=== PATIENT | female | born 1960 | race American Indian/Alaskan Native ===

== ENCOUNTER 2018-09-26 06:22 | Day surgery (SDC) | payer OTHER ==
[~2018-09-26 06:22] MED LIST: Midazolam 1 MG/ML 2 ML SDV ONE; fentaNYL 100 MCG/2 ML SDV ONE
[2018-09-26] MEDS ORDERED: fentaNYL 100 MCG/2 ML SDV IV ONE ×3 (06:23→07:47)
[2018-09-26] MEDS ORDERED: Midazolam 1 MG/ML 2 ML SDV IV ONE ×3 (06:23→07:48)
[2018-09-26] MEDS ORDERED: Dextrose 5%-0.45% NaCl 1,000 ML IV SCH (06:45)
--- NOTE | 2018-09-26 08:38 | OR ---
DATE: 09/26/2018 PROCEDURE PERFORMED: Esophagogastroduodenoscopy, NBI, and multiple pinch biopsies. INSTRUMENT USED: [id number]-HQ190 Olympus video panendoscope. PREMEDICATIONS: No oral or topical anesthesia used. Fentanyl 100 mcg intravenous, Versed 2 mg intravenous. Nasal O2 cannula. The procedure was done under pulse oximetry, BP recording, and monitoring and evaluation advisor. INDICATION: The patient with persistent heartburn, upper abdominal pain, dyspepsia, and abdominal bloating, unexplained and not responsive to medical measures, on multiple acid suppressants. Esophagogastroduodenoscopy is performed for detection of any active erosive lesions, malignancy also under consideration. H. pylori status to be determined, small bowel biopsies to be obtained for celiac disease if indicated, endoscopic hemostasis therapy if needed. DESCRIPTION OF PROCEDURE: The scope was passed with ease. Adequate visualization of the esophagus was made from proximal to distal areas. No upper esophageal lesions identified. No distal esophageal stricture. No uphill or downhill esophageal varices. No [place] tear. No evidence of erosive esophagitis by Knox criteria. No esophageal polyp or tumor mass identified. Z-line was seen at around 39 cm distal to the oral verge, configuration consistent with grade 1 by ZAP classification. No proximal gastric varices noted. Gastric fundus examination by retroflexion showed no polypoid lesions. No gastric ulcer, malignant mass, or vascular ectasia identified. Gastric antral diverticulum was noted. Duodenal bulb showed no ulcer. Visualized second part of the duodenum was unremarkable. Multiple pinch biopsies, 4 in number, were taken from different areas of the second part of the duodenum and also tissues were obtained from the duodenal bulb at 9 and 12 o'clock positions and sent for any histopathologic evidence of celiac disease. NBI views were obtained at the second part of the duodenum. Multiple pinch biopsies were taken from the gastric antrum and proximal body and sent for PyloriTek test for H. pylori and histopathology. No bleeding was noted from any of the visualized areas at the completion of examination. Photographs were taken of the duodenal bulb, gastric antrum, fundus, and distal esophagus. IMPRESSION: Gastric antral diverticulum. The patient tolerated the procedure well. [facility] /[id number]
--- NOTE | 2018-09-26 09:08 | LETTER ---
09/26/[address] [facility] [address] [place] [address] RE: ADRIENNE NEVAREZ : 1960 Dear Ms. Lal: Adrienne Heaven Izabel had esophagogastroduodenoscopy done this morning and she tolerated the procedure well. I herewith send a copy of the endoscopy note and photographs for your review. Thank you. Sincerely, [facility] /[id number]
[2018-09-26 10:58] VITALS: BP 101/59
== END 2018-09-26 10:02 | disposition home or self-care (01) ==
LOC: DL.ENDO 06:22
PROVIDERS: ATTEND Internal Medicine Gastroenterology
DX: K29.50 Unspecified chronic gastritis without bleeding (principal); K31.4 Gastric diverticulum; K31.89 Other diseases of stomach and duodenum; K21.9 Gastro-esophageal reflux disease without esophagitis; D72.820 Lymphocytosis (symptomatic); I10 Essential (primary) hypertension; E78.00 Pure hypercholesterolemia, unspecified; F41.1 Generalized anxiety disorder; E66.09 Other obesity due to excess calories; Z90.49 Acquired absence of other specified parts of digestive tract; Z68.38 Body mass index [BMI] 38.0-38.9, adult
CPT/HCPCS: 43239; 87077; J2250; J3010; J7042

== ENCOUNTER 2019-11-30 14:26 | Emergency (ER) | payer BC, OTHER ==
--- NOTE | 2019-11-30 13:16 | EDM.PDOC ---
ED HPI GENERAL MEDICAL PROBLEM - General Stated Complaint: [facility] Time Seen by Provider: 11/30/19 13:20 Source of Information: Reports: Patient, Provider History Limitations: Reports: No Limitations - History of Present Illness INITIAL COMMENTS - FREE TEXT/NARRATIVE: This 58 yo female patient was brought to the ED by [facility] from the [facility] due to left sided chest pain. The patient reports her chest pain started about 1 hour prior to arrival in the [facility]. The patient was given a dose of Aspirin while in the Clinic and a dose of Nitro while with EMS. During transport, the patient reports her pain was gone. The patient reports her current pain seems to be just below her left nipple. The patient reports no redness or drainage. The patient has a history of gallstones and heartburn, but no personal history of cardiac issues. The patient's family does have a history of cardiovascular problems (her brother has had a heart attack). Onset: Today Onset Date: 11/30/19 Onset Time: 11:00 Duration: Intermittent Location: Reports: Chest (left side of chest and left breast) Quality: Reports: Ache, Sharp Severity: Moderate Improves with: Reports: None Worsens with: Reports: None Context: Reports: Other Associated Symptoms: Reports: Chest Pain Treatments EVP GENERAL COUNSEL: Reports: Aspirin (By [facility]), Nitroglycerin (by EMS) Left Chest Pain Score (Numeric/FACES): 2 - Related Data Allergies Allergy/AdvReac Type Severity Reaction Status Date / Time Dairy Products Allergy Nausea and Verified 11/30/19 13:18 Vomiting Home Meds: Home Meds Lidocaine 5% [Lidoderm 5%] 1 patch TOP DAILY 11/30/19 [History] Past Medical History - Past Health History Medical/Surgical History: Denies Medical/Surgical History Cardiovascular History: Reports: High Cholesterol, Hypertension, Other (See Below) Other Cardiovascular History: PATIENT DENIES HX OF HBP & HIGH CHOLESTEROL Respiratory History: Reports: None Gastrointestinal History: Reports: Diverticulosis, GERD, Helicobacter Pylori Genitourinary History: Reports: None [employer] History: Reports: Ectopic , Musculoskeletal History: Reports: None, Fracture Other Musculoskeletal History: HX OF FRACTURE OF LEFT FOREARM Neurological History: Reports: None Psychiatric History: Reports: Anxiety, Other (See Below) Other Psychiatric History: DENIES HX OF ANXIETY Endocrine/Metabolic History: Reports: Obesity/BMI 30+ Hematologic History: Reports: B12 Deficiency, Blood Transfusion(s) Immunologic History: Reports: None Oncologic (Cancer) History: Reports: None Dermatologic History: Reports: None - Infectious Disease History Infectious Disease History: Reports: Helicobacter Pylori Other Infectious Disease History: UNKNOWN - Past Surgical History Head Surgeries/Procedures: Reports: None HEENT Surgical History: Reports: None Cardiovascular Surgical History: Reports: None Respiratory Surgical History: Reports: None GI Surgical History: Reports: Cholecystectomy, Colonoscopy, EGD Female Surgical History: Reports: D&C, Tubal Ligation Endocrine Surgical History: Reports: None Neurological Surgical History: Reports: None Musculoskeletal Surgical History: Reports: Other (See Below) Other Musculoskeletal Surgeries/Procedures:: BUNIONECTOMY Oncologic Surgical History: Reports: None Dermatological Surgical History: Reports: None Social & Family History - Caffeine Use Caffeine Use: Reports: Coffee Other Caffeine Use: 1 CUP COFFEE DAILY ED ROS GENERAL - Review of Systems Review Of Systems: Comprehensive ROS is negative, except as noted in HPI. ED EXAM, GENERAL - Physical Exam Exam: See Below Exam Limited By: No Limitations General Appearance: Alert, WD/WN, Anxious, Mild Distress Eye Exam: Bilateral Eye: EOMI, Normal Inspection, PERRL Ears: Normal External Exam, Normal Canal, Hearing Grossly Normal, Normal TMs Nose: Normal Inspection, Normal Mucosa, No Blood Throat/Mouth: Normal Inspection, Normal Lips, Normal Teeth, Normal Gums, Normal Oropharynx, Normal Voice, No Airway Compromise Head: Atraumatic, Normocephalic Neck: Normal Inspection, Supple, Non-Tender, Full Range of Motion Respiratory/Chest: No Respiratory Distress, Lungs Clear, Normal Breath Sounds, No Accessory Muscle Use Cardiovascular: Normal Peripheral Pulses, Regular Rate, Rhythm, No Edema, No Gallop, No JVD, No Murmur, No Rub GI/Abdominal: Normal Bowel Sounds, Soft, Non-Tender, No Organomegaly, No Distention, No Abnormal Bruit, No Mass (Female) Exam: Deferred Rectal (Female) Exam: Deferred Back Exam: Normal Inspection, Full Range of Motion, NT Extremities: Normal Inspection, Normal Range of Motion, Non-Tender, Normal Capillary Refill, No Pedal Edema Neurological: Alert, Oriented, CN II-XII Intact, Normal Cognition, Normal Gait, Normal Reflexes, No Motor/Sensory Deficits Psychiatric: Normal Affect, Normal Mood Skin Exam: Warm, Dry, Intact, Normal Color, No Rash Lymphatic: No Adenopathy Course - Vital Signs Last Recorded V/S: Last Vital Signs Temp 37.2 C 11/30/19 13:12 Pulse 67 11/30/19 13:12 Resp 18 11/30/19 13:12 BP 158/88 H 11/30/19 13:12 Pulse Ox 98 11/30/19 13:12 - Orders/Labs/Meds Orders: Active Orders 24 hr Category Date Time Status EKG Documentation Completion [RC] STAT Care 11/30/19 13:11 Ordered Labs: Laboratory Tests 11/30/19 11/30/19 Range/Units 13:25 13:25 WBC 6.3 (5.0-10.0) 10^3/uL RBC 4.86 (4.2-5.4) 10^6/uL Hgb 13.9 (12.0-16.0) g/dL Hct 40.1 (37.0-47.0) % MCV 82.5 (80-100) fL MCH 28.6 (27.0-34.0) pg MCHC 34.7 (33.0-35.0) g/dL Plt Count 285 D (150-450) 10^3/uL Neut % (Auto) 58.6 (42.2-75.2) % Lymph % (Auto) 31.0 (20.5-50.1) % Morrill % (Auto) 8.0 (2-8) % Eos % (Auto) 1.9 (1.0-3.0) % Baso % (Auto) 0.5 (0.0-1.0) % Sodium 140 (136-145) mmol/L Potassium 3.8 (3.5-5.1) mmol/L Chloride 104 (98-107) mmol/L Carbon Dioxide 26 (21-32) mmol/L Anion Gap 13.8 H (7-13) mEq/L BUN 19 H (7-18) mg/dL Creatinine 0.92 (0.55-1.02) mg/dL Est Cr Clr Drug Dosing 56.85 mL/min Estimated GFR (MDRD) > 60 BUN/Creatinine Ratio 20.7 (No establ ref range) Glucose 104 H (74-99) mg/dL Calcium 9.2 (8.5-10.1) mg/dL Total Bilirubin 0.2 (0.2-1.0) mg/dL AST 16 (15-37) U/L ALT 25 (14-59) U/L Alkaline Phosphatase 105 (46-116) U/L Troponin I < 0.017 (0.000-0.056) ng/mL Total Protein 7.2 (6.4-8.2) g/dL Albumin 3.7 (3.4-5.0) g/dL Globulin 3.5 Albumin/Globulin Ratio 1.1 Amylase 42 (25-115) U/L Lipase 223 (73-393) U/L - Re-Assessments/Exams Free Text/Narrative Re-Assessment/Exam: 11/30/19 14:22 The patient was given the lab, EKG and x-ray results. Further evaluation of the patient's left chest revealed increased pain with palpation of her left pectoral musculature. The patient does recall moving things yesterday. Departure - Departure Time of Disposition: 14:23 Disposition: Home, Self-Care 01 Condition: Fair Clinical Impression: Nonspecific chest pain Chest wall muscle strain Qualifiers: Encounter type: initial encounter Qualified Code(s): S29.011A - Strain of muscle and tendon of front wall of thorax, initial encounter Instructions: Nonspecific Chest Pain, Adult, [id number], Muscle Strain, Easy- to-Read Forms: ED Department Discharge Care Plan Goals: The patient was advised of the examination, lab, EKG and x-ray results during the visit. The patient was encouraged to take Tylenol or ibuprofen as directed for temporary symptom relief. If the patient has any additional symptoms or concerns, the patient should either return to the emergency department or visit her primary care facility. Sepsis Event Note - Focused Exam Vital Signs: Vital Signs Temp Pulse Resp BP Pulse Ox 11/30/19 13:12 37.2 C 67 18 158/88 H 98 Date Exam was Performed: 11/30/19 Time Exam was Performed: 14:22 - My Orders Last 24 Hours: My Active Orders 11/30/19 13:11 EKG Documentation Completion [RC] STAT - Assessment/Plan Last 24 Hours: My Active Orders 11/30/19 13:11 EKG Documentation Completion [RC] STAT
[2019-11-30 13:18] VITALS: BP 158/88; PULSE 67
--- NOTE | 2019-11-30 13:44 | CR ---
EXAMINATION: Chest 1V Frontal SEX: Female AGE: 58 years CLINICAL HISTORY: 58-year-old female with left-sided CHEST PAIN. Interpretation: Reasonable inspiratory effort obese female. External secured entrance monitor leads. Normal cardiac size and configuration. No pulmonary vascular congestion, cephalization of flow, alveolar edema or dependent pleural fluid accumulation (no effusions). Midline tracheal bronchial airway unremarkable. No foreign bodies No lung mass, hilar lymphadenopathy or focal lobar pneumonia. No atelectasis/collapse. No pneumothorax or pneumomediastinum. No free subdiaphragmatic air although the right hemidiaphragm is slightly elevated. Significance? CONCLUSION: No acute cardiopulmonary abnormality.
[2019-11-30 13:52] LABS: ANION GAP 13.8 mEq/L (7-13); CHLORIDE,CL 104 mmol/L (98-107); SODIUM,NA 140 mmol/L (136-145)
== END 2019-11-30 14:32 | disposition home or self-care (01) ==
LOC: DL.ED 14:26
DX: S29.011A Strain of muscle and tendon of front wall of thorax, initial encounter (principal); I10 Essential (primary) hypertension; E66.9 Obesity, unspecified; Z68.41 Body mass index [BMI] 40.0-44.9, adult; Z91.011 Allergy to milk products; X58.XXXA Exposure to other specified factors, initial encounter
CPT/HCPCS: 36415; 71045; 80053; 82150; 83690; 84484; 85025; 93005; 99282; 99285-25

== ENCOUNTER 2021-03-19 07:23 | Emergency (ER) | payer OTHER ==
[2021-03-19] MEDS: Acetaminophen/HYDROcodone 325-10 MG Tab PO ONE (07:51)
--- NOTE | 2021-03-19 07:51 | CR ---
PROCEDURE INFORMATION: Exam: XR Right Ankle Exam date and time: 03/19/2021 7:34 AM Age: 60 years old Clinical indication: Injury or trauma; Fall; Blunt trauma; Ankle; Right; Additional info: RT ankle injury, fell on stairs TECHNIQUE: Imaging protocol: XR Right ankle. Views: 3 or more views. COMPARISON: No relevant prior studies available. FINDINGS: Bones/joints: There is a prominent plantar calcaneal enthesophyte. Oblique intra-articular, mildly displaced fracture of the distal fibula. Widened ankle mortise at the medial aspect. Fracture noted posteriorly on the lateral view likely arises from the distal tibia. Soft tissues: There is soft tissue swelling appreciated. IMPRESSION: 1. Oblique intra-articular, mildly displaced fracture of the distal fibula. 2. Widened ankle mortise at the medial aspect. 3. Fracture noted posteriorly on the lateral view likely arises from the distal tibia.
--- NOTE | 2021-03-19 08:01 | EDM.PDOC ---
<Donald Fuentesian - Last Filed: 03/19/21 08:09> ED HPI GENERAL MEDICAL PROBLEM - General Chief Complaint: Lower Extremity Injury/Pain Time Seen by Provider: 03/19/21 07:30 - Related Data Allergies Allergy/AdvReac Type Severity Reaction Status Date / Time Dairy Products Allergy Nausea and Verified 11/30/19 13:18 Vomiting Home Meds: Home Meds Lidocaine 5% [Lidoderm 5%] 1 patch TOP DAILY 11/30/19 [History] Course - Radiology Interpretation Free Text/Narrative:: [facility] [place] [facility] Final Radiology Report Call: [phone] assistance Online chat: [email or web address] Name: ADRIENNE NEVAREZ Age: 60Years F Date: 03/19/2021 SSN: -- : 1960 Study: CR ANKLE MIN 3V RT Requesting Physician: DONALD FUENTES Images: 3 Addl Studies: Provided Clinical History: Rt ankle injury, fell on stairs Contrast: Contrast Medium: Contrast Amount: Contrast Method: CONFIDENTIALITY STATEMENT This report is intended only for use by the referring physician, and only in accordance with law. If you received this in error, call [phone]. Page 1 of 1 PROCEDURE INFORMATION: Exam: XR Right Ankle Exam date and time: 03/19/2021 7:34 AM Age: 60 years old Clinical indication: Injury or trauma; Fall; Blunt trauma; Ankle; Right; Additional info: RT ankle injury, fell on stairs TECHNIQUE: Imaging protocol: XR Right ankle. Views: 3 or more views. COMPARISON: No relevant prior studies available. FINDINGS: Bones/joints: There is a prominent plantar calcaneal enthesophyte. Oblique intra-articular, mildly displaced fracture of the distal fibula. Widened ankle mortise at the medial aspect. Fracture noted posteriorly on the lateral view likely arises from the distal tibia. Soft tissues: There is soft tissue swelling appreciated. IMPRESSION: 1. Oblique intra-articular, mildly displaced fracture of the distal fibula. 2. Widened ankle mortise at the medial aspect. 3. Fracture noted posteriorly on the lateral view likely arises from the distal tibia. Thank you for allowing us to participate in the care of your patient. Dictated and Authenticated by: Rangel Lopez MD 03/19/2021 7:51 AM Central Time ([place] & [place]) Departure - Departure Disposition: Home, Self-Care 01 Clinical Impression: Fibula fracture Qualifiers: Encounter type: initial encounter Fibula location: distal Fracture type: closed Fracture morphology: unspecified fracture morphology Laterality: right Qualified Code(s): S82.831A - Other fracture of upper and lower end of right fibula, initial encounter for closed fracture - Discharge Information Instructions: Tibial and Fibular Fractures Forms: ED Department Discharge Additional Instructions: RX: [place] Do not drive while using [place] as it is a narcotic and can impair your driving. Contact Orthopedics to determine what time your appointment is tomorrow with Dr. Chase. Rest Ice and elevate fracture . If any new symptoms or concerns develop contact your primary care facility or return to the er. Orthopedics [phone] <Ty Mcgovern - Last Filed: 03/19/21 10:29> ED HPI GENERAL MEDICAL PROBLEM - General Source of Information: Reports: Patient History Limitations: Reports: No Limitations - History of Present Illness INITIAL COMMENTS - FREE TEXT/NARRATIVE: 60 y/o F was walking down the stairs in her house about 610 am this morning and slipped and fell landing on her bottom with her R foot underneath her. Pt c/o R ankle pain 01/24. Denies other injury. No blood thinners. Denies fever, cough, chills, drugs, etoh. 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 , Musculoskeletal History: Reports: None, Fracture Other Musculoskeletal History: HX OF FRACTURE OF LEFT FOREARM Neurological History: Reports: None Psychiatric History: Reports: Anxiety, Other (See Below) Other Psychiatric History: DENIES HX OF ANXIETY Endocrine/Metabolic History: Reports: Obesity/BMI 30+ Hematologic History: Reports: B12 Deficiency, Blood Transfusion(s) Immunologic History: Reports: None Oncologic (Cancer) History: Reports: None Dermatologic History: Reports: None - Infectious Disease History Infectious Disease History: Reports: Helicobacter Pylori Other Infectious Disease History: UNKNOWN - Past Surgical History Head Surgeries/Procedures: Reports: None HEENT Surgical History: Reports: None Cardiovascular Surgical History: Reports: None Respiratory Surgical History: Reports: None GI Surgical History: Reports: Cholecystectomy, Colonoscopy, EGD Female Surgical History: Reports: D&C, Tubal Ligation Endocrine Surgical History: Reports: None Neurological Surgical History: Reports: None Musculoskeletal Surgical History: Reports: Other (See Below) Other Musculoskeletal Surgeries/Procedures:: BUNIONECTOMY Oncologic Surgical History: Reports: None Dermatological Surgical History: Reports: None Social & Family History - Caffeine Use Caffeine Use: Reports: Coffee Other Caffeine Use: 1 CUP COFFEE DAILY Review of Systems - Review of Systems Review Of Systems: Comprehensive ROS is negative, except as noted in HPI. ED EXAM, GENERAL - Physical Exam Exam: See Below General Appearance: Alert, No Apparent Distress Respiratory/Chest: No Respiratory Distress Cardiovascular: Normal Peripheral Pulses Peripheral Pulses: 2+: Dorsalis Pedis (L), Dorsalis Pedis (R) Extremities: Other (Swelling and tenderness to R ankle. Good distal pulses skin intact no tenting. ) Course - Vital Signs Last Recorded V/S: Last Vital Signs Temp 97.8 F 03/19/21 07:20 Pulse 66 03/19/21 07:20 Resp 16 03/19/21 07:20 BP 142/73 H 03/19/21 07:20 Pulse Ox 99 03/19/21 07:20 - Orders/Labs/Meds Orders: Active Orders 24 hr Category Date Time Status Splinting [RC] ASDIRECTED Care 03/19/21 09:09 Active Ankle 2V Rt [CR] Stat Exams 03/19/21 10:07 Taken DME for Discharge [COMM] Routine Oth 03/19/21 09:08 Ordered Meds: Medications Discontinued Medications Generic Name Dose Route Start Last Admin Trade Name Freq PRN Reason Stop Dose Admin Hydrocodone Bitart/Acetaminophen 1 tab 03/19/21 07:24 03/19/21 07:51 Acetaminophen/Hydrocodone 325-10 Mg Tab PO 03/19/21 07:25 1 tab ONETIME ONE Administration Hydromorphone HCl 1 mg 03/19/21 09:07 03/19/21 09:25 Hydromorphone 1 Mg/Ml Syringe IM 03/19/21 09:08 1 mg ONETIME ONE Administration Promethazine HCl 25 mg 03/19/21 09:07 03/19/21 09:24 Promethazine 25 Mg/Ml Sdv IM 03/19/21 09:08 25 mg ONETIME ONE Administration - Re-Assessments/Exams Free Text/Narrative Re-Assessment/Exam: 03/19/21 09:04 Discussed pts exam and imaging with md Nicolas Forrest from [facility]. He ordered pts fracture to be reduced and splinted. He stated he will setup an appointment for pt to see his colleague Dr. Chase on Tuesday. 03/19/21 09:56 R leg splinted with ortho glass with no complications. Pt tolerated well. Cms intact. Departure - Departure Time of Disposition: 09:59 Condition: Fair - Discharge Information *PRESCRIPTION DRUG MONITORING PROGRAM REVIEWED*: Not Applicable *COPY OF PRESCRIPTION DRUG MONITORING REPORT IN PATIENT YUSRA: Not Applicable Sepsis Event Note (ED) - Focused Exam Vital Signs: Vital Signs Temp Pulse Resp BP Pulse Ox 03/19/21 07:20 97.8 F 66 16 142/73 H 99
[2021-03-19 08:48] VITALS: BP 142/73; PULSE 66
[2021-03-19] MEDS: Promethazine 25 MG/ML SDV IM ONE (09:24)
[2021-03-19] MEDS: HYDROmorphone 1 MG/ML Syringe IM ONE (09:25)
--- NOTE | 2021-03-19 11:16 | CR ---
PROCEDURE INFORMATION: Exam: XR Right Ankle Exam date and time: 03/19/2021 10:14 AM Age: 60 years old Clinical indication: Other: Post reduction; Additional info: Post-reduction TECHNIQUE: Imaging protocol: XR Right ankle. Views: 1 or 2 views. COMPARISON: CR Ankle Min 3V Rt 03/19/2021 7:34 AM FINDINGS: Bones/joints: A cast is present which obscures underlying bony detail. No change in alignment of the distal fibula and posterior tibia fractures. Persistent widening of the ankle mortise at the medial aspect. There is a prominent plantar calcaneal enthesophyte. Soft tissues: There is soft tissue swelling appreciated. IMPRESSION: 1. No change in alignment of the distal fibula and posterior tibia fractures. 2. Persistent widening of the ankle mortise at the medial aspect.
== END 2021-03-19 10:49 | disposition home or self-care (01) ==
LOC: DL.ED 07:23
DX: S82.831A Other fracture of upper and lower end of right fibula, initial encounter for closed fracture (principal); I10 Essential (primary) hypertension; E66.9 Obesity, unspecified; Z68.35 Body mass index [BMI] 35.0-35.9, adult; Z91.011 Allergy to milk products; W01.0XXA Fall on same level from slipping, tripping and stumbling without subsequent striking against object, initial encounter
CPT/HCPCS: 29515; 73600-RT; 73610-RT; 96372; 99284-25; A9270-GY; J1170; J2550

== ENCOUNTER 2022-09-22 06:20 | Day surgery (SDC) | payer BC, OTHER ==
[~2022-09-22 06:20] MED LIST changes: +Dextrose 5%-0.45% NaCl 1,000 ML IV SCH
[2022-09-22] MEDS ORDERED: Dextrose 5%-0.45% NaCl 1,000 ML IV SCH (06:30)
[2022-09-22] MEDS ORDERED: fentaNYL 100 MCG/2 ML SDV IV ONE ×6 (07:50→08:01)
[2022-09-22] MEDS ORDERED: Midazolam 1 MG/ML 2 ML SDV IV ONE ×6 (07:51→07:58)
[2022-09-22 11:48] VITALS: BP 119/70; PULSE 63
== END 2022-09-22 09:40 | disposition home or self-care (01) ==
LOC: DL.ENDO 06:20
PROVIDERS: ATTEND Internal Medicine Gastroenterology
DX: R19.4 Change in bowel habit (principal); R19.7 Diarrhea, unspecified; F41.1 Generalized anxiety disorder; I10 Essential (primary) hypertension; E78.00 Pure hypercholesterolemia, unspecified; E66.9 Obesity, unspecified; Z68.41 Body mass index [BMI] 40.0-44.9, adult
CPT/HCPCS: 45378; J2250; J3010; J7042